=== PATIENT | female | born 1980 | race Caucasian/White ===

== ENCOUNTER 2023-09-15 19:07 | Emergency (ER) | payer OTHER ==
[~2023-09-15] VITALS: Ht 157.5 cm; Wt 69.0 kg
[~2023-09-15 19:07] MED LIST: OMEP20 PO; SERT20OR PO
[2023-09-15 19:31] VITALS: TEMP 98.3
[2023-09-15] MEDS ORDERED: CEPH-558 PO (20:10)
[2023-09-15] MEDS: CEPHALEXIN MONOHYDRATE 500 MG CAPSULE PO ONE (20:17)
[2023-09-15] MEDS: IBUPROFEN 400 MG TABLET PO ONE (20:17)
[2023-09-15 20:20] VITALS: BP 121/62; PULSE 65; RESP 16
== END 2023-09-15 20:24 | disposition home or self-care (01) ==
LOC: EMS 19:08
DX: L03.012 Cellulitis of left finger (principal)
CPT/HCPCS: 10060; 99283